=== PATIENT | female | born 1985 | race Caucasian/White ===

== ENCOUNTER 2018-07-04 21:07 | Emergency (ER) | payer OTHER ==
[2018-07-04] MEDS ORDERED: Sodium Chloride 0.9% 1,000 ML IV ONE (21:27)
--- NOTE | 2018-07-04 21:37 | C.PDOC ---
History Of Present Illness The patient, who is currently around 6 weeks , presents to the ED for evaluation of vaginal spotting which began earlier today. Patient denies fever, chills, nausea, vomiting or abdominal pain. Patient is . Time Seen by Provider: 07/04/18 21:26 Chief Complaint (Nursing): Female Genitourinary History Per: Patient History/Exam Limitations: no limitations Onset/Duration Of Symptoms: Days (4) Current Symptoms Are (Timing): Still Present Quality Of Discomfort: denies: Cramping, "Pain" Associated Symptoms: denies: Fever, Chills, Nausea, Vomiting Alleviating Factors: None Recent travel outside of the [place]: No Additional History Per: Patient Abnormal Vaginal Bleeding: Yes : 2 Para: 0 Past Medical History Reviewed: Historical Data, Nursing Documentation, Vital Signs Vital Signs: Last Vital Signs Temp 98.4 F 07/04/18 21:16 Pulse 79 07/04/18 21:16 Resp 14 07/04/18 21:16 BP 100/65 07/04/18 21:16 Pulse Ox - Medical History PMH: No Chronic Diseases Surgical History: No Surg Hx Family History: States: Unknown Family Hx - Social History Hx Alcohol Use: No Hx Substance Use: No - Immunization History Hx Influenza Vaccination: Yes Review Of Systems Constitutional: Negative for: Fever, Chills Cardiovascular: Negative for: Chest Pain, Palpitations Respiratory: Negative for: Cough, Shortness of Breath Gastrointestinal: Negative for: Nausea, Vomiting, Abdominal Pain, Diarrhea Genitourinary: Positive for: Other (vaginal spotting ). Negative for: Dysuria, Frequency, Hematuria Musculoskeletal: Negative for: Back Pain Skin: Negative for: Rash, Lesions, Jaundice, Bruising Neurological: Negative for: Weakness, Numbness Physical Exam - Physical Exam Appears: Non-toxic, No Acute Distress Skin: Warm, Dry Head: Normacephalic Eye(s): bilateral: Normal Inspection Oral Mucosa: Moist Neck: Supple Chest: Symmetrical, No Deformity, No Tenderness Cardiovascular: Rhythm Regular, No Murmur Respiratory: No Rales, No Rhonchi, No Wheezing Gastrointestinal/Abdominal: Soft, No Tenderness, No Guarding, No Rebound Extremity: Normal ROM, Capillary Refill (less than 2 seconds ) Neurological/Psych: Oriented x3 ED Course And Treatment - Laboratory Results Result Diagrams: 07/04/18 21:59 07/04/18 21:59 - CT Scan/US ultrasound Other Rad Studies (CT/US): Read By Radiologist, Radiology Report Reviewed CT/US Interpretation: EXAM: US Obstetrical, Complete <14 weeks. CLINICAL HISTORY: Vag bleed ,. TECHNIQUE: Transvaginal and transabdominal imaging of the maternal pelvis and a <14 week gestation with image documentation. COMPARISON: None provided. FINDINGS: UTERUS: Uterus measures 9.2 x 8.2 x 8.1 cm. The uterus is anteverted. CERVIX: The cervix measures 3.5 cm and appears closed. OVARIES: Unremarkable. No mass. FREE FLUID: No free fluid. MISCELLANEOUS: A gestational sac is present. A yolk sac is present. The pole is present. heart motion is observed at 141 beats per minute. Mean sac diameter measures 5.1 cm compatible with an estimated ultrasound age of 10.6 weeks. Artois rump length measures 4.2 cm compatible with an estimated ultrasound age of 11.1 weeks. Right ovary measures 3.5 x 1.5 x 2.4 cm and demonstrates normal Doppler flow. Left ovary measures 2.4 x 2.0 x 2.3 cm and demonstrates normal Doppler flow. There is a subchorionic hemorrhage superiorly which measures 2.7 x 0.7 x 2.9 cm. A 2nd subchorionic hemorrhage posteriorly measures 3.2 x 0.7 x 3.4 cm. IMPRESSION: 1. Single live intrauterine gestation of approximately 11.0 weeks. 2. heart motion is observed at 141 beats per minute. 3. There is a subchorionic hemorrhage superiorly which measures 2.7 x 0.7 x 2.9 cm. 4. A 2nd subchorionic hemorrhage posteriorly measures 3.2 x 0.7 x 3.4 cm. Progress Note: Bloodwork, urinalysis, and OB Transvaginal Ultrasound ordered. IV Fluids given. Disposition Counseled Patient/Family Regarding: Studies Performed, Diagnosis, Need For Followup - Disposition Referrals: Radha Kingston MD [Staff Provider] - Disposition: HOME/ ROUTINE Disposition Time: 21:27 Condition: FAIR Additional Instructions: Please return if symptoms recur Instructions: Threatened Miscarriage (DC), Bleeding With (DC) Forms: Petsy (Yoruba) - Clinical Impression Clinical Impression: Threatened , Subchorionic bleed - Scribe Statement The provider has reviewed the documentation as recorded by the Scribe (Kimberly Kingston) Provider Attestation: All medical record entries made by the Scribe were at my direction and personally dictated by me. I have reviewed the chart and agree that the record accurately reflects my personal performance of the history, physical exam, medical decision making, and the department course for this patient. I have also personally directed, reviewed, and agree with the discharge instructions and disposition.
[2018-07-04] MEDS ORDERED: Sodium Chloride 0.9% 1,000 ML ONE (21:48)
[2018-07-04 22:03] LABS: BASO % 0.4 % (0.0-2.0); EOS # 0.4 K/uL (0.0-0.7); HEMOGLOBIN 11.1 g/dL (11.0-16.0); LYMPH # 2.7 K/uL (1.0-4.3); LYMPH % 23.8 % (20.0-40.0); MEAN CORPUSCULAR HEMOGLOBIN 19.6 pg (27.0-31.0); MEAN PLATELET VOLUME 8.9 fL (7.2-11.7); MONO # 0.5 K/uL (0.0-0.8); MONO % 4.3 % (0.0-10.0); NEUT # 7.5 K/uL (1.8-7.0); NEUT % 67.5 % (50.0-75.0); RBC 5.63 Mil/uL (3.80-5.20); RED CELL DISTRIBUTION WIDTH 17.7 % (11.5-14.5); WHITE BLOOD COUNT 11.1 K/uL (4.8-10.8)
[2018-07-04 22:08] LABS: SQUAMOUS EPITHIAL 18 /hpf (0-5); URINE BACTERIA FEW (<OCC); URINE BILIRUBIN NEGATIVE (NEGATIVE); URINE BLOOD 3+ (NEGATIVE); URINE CALCIUM OXALATE CRYSTALS MOD /hpf (<OCC); URINE CLARITY Hazy (Clear); URINE COLOR Yellow (YELLOW); URINE GLUCOSE (UA) NORMAL (Normal); URINE LEUKOCYTE ESTERASE NEG Leu/uL (Negative); URINE PROTEIN NEGATIVE (NEGATIVE); URINE UROBILINOGEN NORMAL mg/dL (0.2-1.0)
[2018-07-04 22:09] LABS: MEAN CELL VOLUME 61.4 fL (81.0-99.0)
[2018-07-04 22:18] LABS: ALB/GLOB RATIO 1.6 (1.0-2.1); ALBUMIN 4.6 g/dL (3.5-5.0); ALT/SGPT 25 U/L (9-52); AST/SGOT 27 U/L (14-36); BLOOD UREA NITROGEN 8 mg/dL (7-17); CALCIUM 9.9 mg/dl (8.6-10.4); GFR NON-AFRICAN AMERICAN > 60
[2018-07-05 00:11] VITALS: BP 111/72; PULSE 72; RESP 18; TEMP 98.3; O2SAT 100
--- NOTE | 2018-07-05 18:08 | US ---
Date of service: 07/04/2018 PROCEDURE: OB Pelvic Ultrasound HISTORY: vag bleed, Patient's last menstrual period is reported 04/22/2018, suggesting 10 week 3 day gestation. COMPARISON: None available. FINDINGS: UTERUS: Gestational sac: Single intrauterine gestation. Heart rate: 141 bpm. age (Ultrasound estimated): 11 weeks 1 day based on crown-rump length measurement mean length 4.21 cm. Gestational sac mean length 5.1 cm. Karolina-gestational hemorrhage: Multifocal subchorionic hemorrhage is appreciated at various stages of hemorrhagic degradation. Date of delivery (Ultrasound estimated) : 01/23/2019. Uterus measures 9.2 x 8.2 x 8.1 cm. Normal in size and appearance. CERVIX: Measures 3.5 cm. Long and closed. No cervical abnormality seen. RIGHT OVARY: Measures 3.5 x 1.5 x 2.4 cm. No mass lesion. Normal flow. LEFT OVARY: Measures 2.4 x 2.0 x 2.3 cm. No solid mass. Normal flow. FREE FLUID: None. OTHER FINDINGS: None. IMPRESSION: A single viable intrauterine gestation is identified with cardiac activity as discussed above and average ultrasonic age of 11 weeks 1 day based on CRL measurement. Multifocal subchorionic hemorrhage is appreciated as sonographic follow-up is advised as well as clinical correlation. Ultrasound and LMP derived dates are concordant. Concordant preliminary report from [facility], 07/04/2017, 11:51 p.m..
== END 2018-07-05 00:28 | disposition home or self-care (01) ==
LOC: C.ER 21:07
DX: O20.0 Threatened abortion (principal); Z3A.11 11 weeks gestation of pregnancy